=== PATIENT | female | born 1975 | race Asian ===

== ENCOUNTER 2017-01-10 11:01 | Emergency (ER) | payer SELFPAY ==
[~2017-01-10] VITALS: Ht 157.5 cm; Wt 124.7 kg
--- NOTE | 2017-01-10 11:39 | ED GU-Female ---
General Chief Complaint: -Female Stated Complaint: POSS MISCARRIAGE Nursing Triage Note: pt reports around 3:30 this am she woke up and was bleeding vaginally. pt reports she is two weeks late for her period. pt reports she noticed tissue and clots in the toilet and suspects she had a misscarriage. pt reprots she is currenty spotting but not bleeding heavily. Nursing Sepsis Screen: No Definite Risk Source: patient History of Present Illness Time seen by provider: 11:20 Initial Comments PT STATES "I DON'T KNOW IF IT'S MY MENSTRUAL OR I'M HAVING A MISCARRIAGE" PT STATES SHE HAD A NORMAL PERIOD 12/02/16. NO CONTROL PT HAD A PERIOD 01/02 AND BLED HEAVY FOR 2 DAYS AT 0330, SHE HAD A "GUSH" WHILE IN BED, AND HAD A SMALL CLOT; SINCE THEN HAS SPOTTED A SMALL AMOUNT--IS ON SAME PAD SHE HAS HAD ON SINCE THEN AND IS ONLY A SMALL SPOT. NO PAIN OR CRAMPING NO NAUSEA/VOMITING NO URINARY SYMPTOMS NO HISTORY OF SIMILAR STATES SHE DID A HOME TEST 12/29/16 AND IT WAS NEGATIVE--STATES " I WAS JUST PLAYING AROUND" --DENIES ACTIVELY TRYING TO GET . PT IS AB 0 PT IS HERE FROM [place] FOR WORK, AND WILL BE GOING BACK HOME TO [place] TOMORROW. Allergies and Home Medications Allergies Coded Allergies: No Known Drug Allergies (Unverified , 01/10/17) Home Medications No Active Prescriptions or Reported Meds Constitutional: no symptoms reported, No dizziness Respiratory: no symptoms reported Cardiovascular: no symptoms reported Gastrointestinal: no symptoms reported Genitourinary: see HPI Musculoskeletal: no symptoms reported Skin: no symptoms reported Psychiatric/Neurological: No Symptoms Reported Endocrine: No Symptoms Reported Hematologic/Lymphatic: No Symptoms Reported Past [id number]-Lskypx Hx Patient Social History Alcohol Use: Occasionally Uses Recreational Drug Use: No Smoking Status: Never a Smoker 2nd Hand Smoke Exposure: No Recent Foreign Travel: No Contact w/Someone Who Travel: No Recent Infectious Disease Expo: No Recent Hopitalizations: No Seasonal Allergies Seasonal Allergies: No Surgeries HX Surgeries: Yes Surgeries: Gallbladder Respiratory Hx Respiratory Disorders: No Cardiovascular Hx Cardiac Disorders: No Neurological Hx Neurological Disorders: No Reproductive System Hx : 2 Hx Para: 2 Female Reproductive Disorders: Denies Genitourinary Hx Genitourinary Disorders: No Gastrointestinal Hx Gastrointestinal Disorders: No Musculoskeletal Hx Musculoskeletal Disorders: No Endocrine Hx Endocrine Disorders: No HEENT HX ENT Disorders: No Cancer Hx Cancer: No Psychosocial Hx Psychiatric Problems: No Integumentary HX Skin/Integumentary Disorder: No Blood Transfusions Hx Blood Disorders: No Adverse Reaction to a Blood Tr: No Physical Exam Vital Signs Vital Sign - Last 12Hours 01/10/17 11:11 Temp 98.1 Pulse 93 Resp 18 B/P (MAP) 183/108 Pulse Ox 96 Capillary Refill : Less Than 3 Seconds General Appearance: WD/WN, no apparent distress, other (SMILING, TEXTING/ PLAYING ON PHONE. 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, no motor/sensory deficits, alert, normal mood/affect, oriented x 3 Skin: normal color, warm/dry Progress/Results/Core Measures Results/Orders My Orders Orders - BRIANNA NELSON DO Urine Bedside (01/10/17 11:20) Vital Signs/I&O Vital Sign - Last 12Hours 01/10/17 01/10/17 11:11 11:46 Temp 98.1 98.1 Pulse 93 75 Resp 18 18 B/P (MAP) 183/108 Pulse Ox 96 96 Blood Pressure Mean: 133 Point of Care Testing Urine -Bedside: Negative Progress Note : Progress Note URINE HCG NEGATIVE Departure Impression Impression: Primary Impression: Irregular menstrual bleeding Disposition: 01 HOME, SELF-CARE Condition: Stable Departure-Patient Inst. Referrals: NO,LOCAL PHYSICIAN (PCP/Family) Primary Care Physician Patient Instructions: IRREGULAR VAGINAL BLEEDING Add. Discharge Instructions: FOLLOW UP WITH YOUR DR IN [place] IF BLEEDING WORSENS OR CONTINUES TO BE IRREGULAR All discharge instructions reviewed with patient and/or family. Voiced understanding. Scripts No Active Prescriptions or Reported Meds BRIANNA NELSON DO Jan 10, 2017 11:39
[2017-01-10 11:46] VITALS: BP 152/106
== END 2017-01-10 11:46 | disposition home or self-care (01) ==
LOC: ER 11:06
DX: N92.6 Irregular menstruation, unspecified (principal); Z98.890 Other specified postprocedural states; Z32.02 Encounter for pregnancy test, result negative
CPT/HCPCS: 84703; 99282